=== PATIENT | female | born 1945 | race Caucasian/White ===

== ENCOUNTER → 2018-07-20 09:38 | Outpatient (CLI) | payer MEDICARE, OTHER, SELFPAY ==
--- NOTE | 2018-07-20 09:43 | US_ITS ---
FNA w guidance, US organ site (thyroid) HISTORY: ITS.REASON: LT THYROID NODULE ORDERING PHYSICIAN: Kel Schroeder MD PATIENT AGE: 72 years COMPARISON: None Prebiopsy ultrasound: Prebiopsy ultrasound planning performed. Isoechoic nodule noted along the upper pole the left lobe. Biopsy site was marked for needle placement. TECHNIQUE: Following obtaining informed consent, using aseptic technique and local anesthesia with buffered lidocaine, fine-needle aspiration was performed of the nodule of interest using sonographic guidance. 3 passes were made into the nodule with a 25-gauge needle. Specimen was given to cytology. The patient tolerated the procedure well without evidence of immediate complications and left the ultrasound suite in stable condition. CYTOLOGY:Benign follicular nodule IMPRESSION: Ultrasound-guided fine-needle aspiration of left lower thyroid gland showing benign follicular nodule. No immediate complications
--- NOTE | 2018-07-20 09:43 | US_ITS ---
US thyroid HISTORY: Left thyroid nodule ITS.REASON: LT THYROID NODULE ORDERING PHYSICIAN: Kel Schroeder MD PATIENT AGE: 72 years Comparison: None FINDINGS: The right lobe is 4.6 x 1.7 x 1.4 cm. There is a 5 mm pericolic nodule in the lower pole on the right. The left lobe is 4.6 x 1.6 x 2 cm. There is a 1.9 x 1.2 cm spongiform-appearing nodule in the mid polar region on the left. There is a 9 mm hypoechoic nodule in the lower pole in the left. Neither one of these nodules appear cystic. The Isthmus has an unremarkable appearance IMPRESSION: Bilateral thyroid nodules. The largest nodule is 1.9 cm in the mid polar region on the left
== END ==
PROVIDERS: PCP Physician Assistant; Referring Provider Otolaryngology; Visit Provider Otolaryngology
DX: D34 Benign neoplasm of thyroid gland (principal)
CPT/HCPCS: 10005; 76536; 88173